=== PATIENT | female | born 1965 | race Asian ===

== ENCOUNTER 2018-10-28 08:32 | Day surgery (SDC) | payer OTHER ==
[2018-10-28] MEDS ORDERED: MIDAZOLAM 1 MG/ML 2 ML INJ ×2 (10:05)
[2018-10-28] MEDS ORDERED: FENTAnyl 50 MCG/ML VIAL (10:05)
== END 2018-10-28 11:55 | disposition home or self-care (01) ==
LOC: GIL 08:32
DX: Z12.11 Encounter for screening for malignant neoplasm of colon (principal); D12.5 Benign neoplasm of sigmoid colon; K64.8 Other hemorrhoids
CPT/HCPCS: 45380; 88305